=== PATIENT | female | born 1960 | race Caucasian/White ===

== ENCOUNTER 2017-08-13 09:39 | Day surgery (SDC) | payer OTHER, MEDICARE ==
[2017-08-13] MEDS ORDERED: MIDAZOLAM HCL 2MG/2ML VIAL IV ONE (09:40)
[2017-08-13] MEDS ORDERED: PROPOFOL 10 MG/ML VIAL IV ONE ×2 (09:40)
[2017-08-13] MEDS ORDERED: LIDOCAINE 2% MDV (20MG/ML) 20ML VIAL IV ONE (09:40)
--- NOTE | 2017-08-13 13:40 | Operative Note ---
DATE OF SURGERY: 08/13/2017 OPERATION: COLONOSCOPY. PREOPERATIVE DIAGNOSIS: Hemorrhoids, rule out occult polyps and inflammatory bowel disease. POSTOPERATIVE DIAGNOSIS: Mildly enlarged, non-thrombosed external hemorrhoids. Otherwise normal exam. PROCEDURE: After informed consent was obtained from the patient, she was placed in the left lateral decubitus position in the endoscopy suite, sedated and monitored by the department of anesthesia. Digital rectal exam revealed non-thrombosed small external hemorrhoids. A well-lubricated [id number] colonoscope was inserted into the rectum and advanced to the cecum. Preparation quality was good. The cecum, ileocecal valve, and appendiceal orifice were unremarkable. The terminal ileum was unremarkable. The ascending colon, transverse colon, descending colon, sigmoid colon, and rectum were also unremarkable. J-turn views of the anorectum were unrevealing. No internal hemorrhoids were readily identified. The endoscope was straightened, the rectal ampulla deflated, and the endoscope was removed. RECOMMENDATIONS: I would suggest the patient follow a high-fiber diet. If she wishes further attention to her anorectal issues, I would suggest she see Colorectal Surgery. I will discuss this matter further with her. In the interim, I would recommend repeat colonoscopy in 10 years. As always, thank you for allowing me to participate in the healthcare of your patients. CC: GUANAKITO Anne
== END 2017-08-13 11:25 | disposition home or self-care (01) ==
LOC: HOP 09:39
PROVIDERS: ATTEND Internal Medicine Gastroenterology
DX: Z12.11 Encounter for screening for malignant neoplasm of colon (principal); K64.4 Residual hemorrhoidal skin tags; I10 Essential (primary) hypertension; E78.00 Pure hypercholesterolemia, unspecified; E11.9 Type 2 diabetes mellitus without complications; Z79.4 Long term (current) use of insulin
CPT/HCPCS: 00812; G0121

== ENCOUNTER 2017-12-30 19:01 | Emergency (ER) | payer OTHER ==
--- NOTE | 2017-12-30 19:40 | Emergency Department Record ---
History of Present Illness - General Chief Complaint: Fall Injury Stated Complaint: FALL-L ARM/KNEE PAIN Time Seen by Provider: 12/30/17 19:35 Source: Patient Mode of Arrival: Ambulatory Limitations: No limitations - History of Present Illness Initial Comments: 57 yo female presents to ED for evaluation of pain to the left forearm following a trip and fall that occurred 9 hours ago. Patient reports that she was attempting to step over a gas hose when she tripped and fell. Patient reports pain when trying to supinate the left forearm, denies pain over the wrist, shoulder, or elbow. Patient denies injury to the head or neck. MD Complaint: Fall Onset/Timin -: Hour(s) Fall From: Standing Fall Witnessed: Yes, by family Place Fall Occurred: Street Loss of Consciousness: None Prolonged Down Time?: No Symptoms Prior to Fall: None Location - Extremities: Left: Forearm Severity scale (1-10): 8 Quality: Sharp Associated Symptoms: Denies - Ronak Coma Scale Eye Response: (4) Open spontaneously Motor Response: (6) Obeys commands Verbal Response: (5) Oriented Ronak Total: 15 - Related Data Allergies Allergy/AdvReac Type Severity Reaction Status Date / Time No Known Drug Allergies Allergy Verified 12/30/17 19:25 Travel Screening - Travel/Exposure Within Last 30 Days Have you traveled within the last 30 days?: No - Travel Symptoms Symptom Screening: None Review of Systems Constitutional: Denies: Chills, Fever, Malaise, Night sweats Eyes: Denies: Eye discharge, Eye pain ENT: Denies: Congestion, Ear pain, Epistaxis Respiratory: Denies: Cough, Dyspnea Cardiovascular: Denies: Chest pain, Dyspnea on exertion Endocrine: Denies: Fatigue, Heat or cold intolerance Gastrointestinal: Denies: Abdominal pain, Nausea, Vomiting Genitourinary: Denies: Incontinence, Retention Musculoskeletal: Reports: Arthralgia. Denies: Back pain, Gout, Joint swelling Skin: Denies: Bruising, Change in color Neurological: Denies: Abnormal gait, Confusion, Headache, Seizure Psychiatric: Denies: Anxiety Hematological/Lymphatic: Denies: Anemia, Blood Clots Past Medical History - SOCIAL HISTORY Smoking Status: Heavy tobacco smoker (>10/day) - RESPIRATORY Hx Respiratory Disorders: No - CARDIOVASCULAR Hx Cardio Disorders: Yes Hx Deep Vein Thrombosis: Yes Hx Hypertension: Yes Comment:: High cholestrol - NEURO Hx Neuro Disorders: Yes Hx Headaches: Yes - GI Hx GI Disorders: Yes Hx Reflux: Yes - Hx Genitourinary Disorders: Yes Hx UTI: Yes - ENDOCRINE Hx Endocrine Disorders: Yes Hx Diabetes: Yes - MUSCULOSKELETAL Hx Musculoskeletal Disorders: Yes Hx Arthritis: Yes Hx Fibromyalgia: Yes - PSYCH Hx Psych Problems: Yes Hx Depression: Yes - HEMATOLOGY/ONCOLOGY Hx Hematology/Oncology Disorders: Yes Hx Clotting Problems: Yes Family Medical History Any Significant Family History?: Yes Hx Heart Disease: Father Hx HTN: Father, Mother, Brother/Sister Physical Exam - General General Appearance: Alert, Oriented x3, Cooperative Limitations: No limitations - Head Head exam: Atraumatic, Normocephalic, Normal inspection Head exam detail: negative: Abrasion, Contusion, Wayne's sign, General tenderness, Hematoma, Laceration - Eye Eye exam: Normal appearance. negative: Conjunctival injection, Periorbital swelling, Periorbital tenderness, Scleral icterus - ENT Ear exam: negative: Auricular hematoma, Auricular trauma Nasal Exam: negative: Active bleeding, Discharge, Dried blood, Foreign body Mouth exam: negative: Drooling, Laceration, Muffled voice, Tongue elevation - Neck Neck exam: Normal inspection. negative: Meningismus, Tenderness - Respiratory Respiratory exam: Normal lung sounds bilaterally. negative: Rales, Respiratory distress, Rhonchi, Stridor - Cardiovascular Cardiovascular Exam: Regular rate, Normal rhythm, Normal heart sounds Peripheral Pulses: 3+: Radial (L) - GI/Abdominal GI/Abdominal exam: Soft. negative: Rebound, Rigid, Tenderness - Rectal Rectal exam: Deferred - exam: Deferred - Extremities Extremities exam: Tenderness, Other (Mild TTP to the left forearm, pain with supination, compartments are soft on examination, no pain with wrist flexion/ extension or elbow movement. Compartments of the forearm/upper arm are soft on examination.). negative: Calf tenderness, Pedal edema - Back Back exam: Denies: CVA tenderness (R), CVA tenderness (L) - Neurological Neurological exam: Alert, Normal gait, Oriented X3 - Psychiatric Psychiatric exam: Normal affect, Normal mood - Skin Skin exam: Normal color. negative: Abrasion Type of lesion: negative: abrasion Course Vital Signs 12/30/17 19:25 Pulse Rate [ 75 Pulse Ox Probe] Respiratory 20 Rate Blood Pressure 119/77 [Right Arm] Pulse Ox 96 - Reevaluation(s) Reevaluation #1: 12/30/17 20:29 Left Forearm: ? Irregularity of the radial head Patient was updated on her radiograph results, examination with limited ability to supinate appears c/w radial head fracture. Will place in splint with instructions to follow-up with Dr Mena next week in the [facility]. Patient reports that she has [place] at home for pain as well. Disposition Disposition: Discharge Clinical Impression: Radial head fracture Qualifiers: Encounter type: initial encounter Fracture type: closed Fracture alignment: nondisplaced Laterality: left Qualified Code(s): S52.125A - Nondisplaced fracture of head of left radius, initial encounter for closed fracture Disposition: Home, Self-Care Condition: (2) Stable Instructions: Elbow Fracture (ED) Additional Instructions: Return to ED if your symptoms worsen or if you have any concerns. Ibuprofen as directed. Follow-up with Dr. Mena in the [facility] next week as directed. Referrals: TAYE MENA [DOCTOR OF OSTEOPATH] - [facility] [Provider Group] Forms: Patient Portal Access Time of Disposition: 20:02 Quality - Quality Measures Quality Measures: N/A - Blood Pressure Screening Does Patient Have Any of the Following: No Blood Pressure Classification: Normal BP Reading Systolic Measurement: 119 Diastolic Measurement: 77 Screening for High Blood Pressure: < Normal BP, F/U Not Required > [[id number]]
--- NOTE | 2018-01-01 23:35 | RADIOLOGY REPORT ---
EXAM: FOREARM, LEFT HISTORY: FALL. COMPARISON: None. ENCOUNTER: Initial. FINDINGS: Two views of the left forearm show slight irregularity adjacent to the radial head. No additional abnormalities. IMPRESSION: QUESTION RADIAL HEAD FRACTURE. RECOMMEND ELBOW X-RAYS FOR ADDITIONAL EVALUATION. JOB NUMBER: [id number] MTDD
== END 2017-12-30 21:14 | disposition home or self-care (01) ==
LOC: ER 19:01
DX: S52.125A Nondisplaced fracture of head of left radius, initial encounter for closed fracture (principal); I10 Essential (primary) hypertension; F17.210 Nicotine dependence, cigarettes, uncomplicated; W01.10XA Fall on same level from slipping, tripping and stumbling with subsequent striking against unspecified object, initial encounter; Y92.410 Unspecified street and highway as the place of occurrence of the external cause
CPT/HCPCS: 99283